=== PATIENT | male | born 1980 | race Two or more races ===

== ENCOUNTER 2020-05-13 04:08 | Emergency (ER) | payer MEDICAID, OTHER ==
[~2020-05-13] VITALS: Ht 175.3 cm; Wt 68.0 kg
[2020-05-13 04:39] VITALS: BP 137/85
[2020-05-13] MEDS ORDERED: IBUPROFEN 800 MG TAB PO ONE (07:15)
== END 2020-05-13 07:40 | disposition home or self-care (01) ==
LOC: ER 04:08
DX: S42.002A Fracture of unspecified part of left clavicle, initial encounter for closed fracture (principal); X50.0XXA Overexertion from strenuous movement or load, initial encounter; Y93.89 Activity, other specified; Y92.89 Other specified places as the place of occurrence of the external cause; Y99.8 Other external cause status
CPT/HCPCS: 73000